=== PATIENT | male | born 2000 | race Caucasian/White ===

== ENCOUNTER 2022-07-07 21:32 | Emergency (ER) | payer OTHER, SELFPAY ==
[2022-07-07 21:33] VITALS: BP 150/93; PULSE 101; RESP 16; TEMP 36.8; O2SAT 100; BMI 17.9
--- NOTE | 2022-07-07 21:38 | ECG_ITS ---
APPROVED REPORT Exam: Resting ECG HR:81 bpm ECG Measurements Heart Rate 81 AXES [place] 152 P 76 QRSd 112 QRS 77 QT 352 T 52 QTc 390 Conclusion SINUS RHYTHM MODERATE INTRAVENTRICULAR CONDUCTION DELAY [110+ ms QRS DURATION] NONSPECIFIC T-WAVE ABNORMALITY BORDERLINE ECG UNCONFIRMED REPORT Electronically signed by : Siddharth Sinclair MD 07/08/2022 08:49:53
--- NOTE | 2022-07-07 22:03 | CT_ITS ---
PROCEDURE INFORMATION: Exam: CT Cervical Spine Without Contrast Exam date and time: 07/07/2022 10:18 PM Age: 22 years old Clinical indication: Injury or trauma; Fall; Blunt trauma; Additional info: Fall, syncope TECHNIQUE: Imaging protocol: Computed tomography of the cervical spine without contrast. Radiation optimization: All CT scans at this facility use at least one of these dose optimization techniques: automated exposure control; mA and/or kV adjustment per patient size (includes targeted exams where dose is matched to clinical indication); or iterative reconstruction. REPORTING DATA: Count of CT and Cardiac NM exams in prior 12 months: This patient has received [address] and 0 known cardiac nuclear medicine studies in the 12 months prior to the current study. COMPARISON: CT HEAD/BRAIN WO CON 07/07/2022 10:16 PM FINDINGS: Bones/joints: No acute fracture. Normal alignment. No significant disc bulge or herniation. No severe spinal canal stenosis. No significant neural foraminal narrowing. Lungs: Lung apices are normal. Soft tissues: Unremarkable. IMPRESSION: No acute findings.
--- NOTE | 2022-07-07 22:03 | XR_ITS ---
PROCEDURE INFORMATION: Exam: XR Pelvis Exam date and time: 07/07/2022 10:35 PM Age: 22 years old Clinical indication: Pelvic pain; Additional info: Fall TECHNIQUE: Imaging protocol: Radiologic exam of the pelvis. Views: 1 or 2 view. COMPARISON: No relevant prior studies available. FINDINGS: Bones/joints: Unremarkable. No acute fracture. Soft tissues: Unremarkable. IMPRESSION: No acute findings.
--- NOTE | 2022-07-07 22:03 | CT_ITS ---
PROCEDURE INFORMATION: Exam: CT Head Without Contrast Exam date and time: 07/07/2022 10:16 PM Age: 22 years old Clinical indication: Injury or trauma; Fall; Blunt trauma (contusions or hematomas); Consciousness not specified; Additional info: Fall, syncope TECHNIQUE: Imaging protocol: Computed tomography of the head without contrast. Radiation optimization: All CT scans at this facility use at least one of these dose optimization techniques: automated exposure control; mA and/or kV adjustment per patient size (includes targeted exams where dose is matched to clinical indication); or iterative reconstruction. REPORTING DATA: Count of CT and Cardiac NM exams in prior 12 months: This patient has received [address] and 0 known cardiac nuclear medicine studies in the 12 months prior to the current study. COMPARISON: No relevant prior studies available. FINDINGS: Brain: Normal. No hemorrhage. Unremarkable white matter. No mass effect. Cerebral ventricles: No ventriculomegaly. Pituitary gland and sella: Negative Paranasal sinuses: Visualized sinuses are unremarkable. No fluid levels. Mastoid air cells: Visualized mastoid air cells are well aerated. Orbital cavities: Negative. Parotid and submandibular glands: Negative Bones/joints: Unremarkable. No acute fracture. Soft tissues: Unremarkable. Vasculature: Negative. IMPRESSION: No acute intracranial abnormality.
--- NOTE | 2022-07-07 22:03 | XR_ITS ---
PROCEDURE INFORMATION: Exam: XR Chest Exam date and time: 07/07/2022 10:35 PM Age: 22 years old Clinical indication: Pain; Other: Generalized; Additional info: Fall TECHNIQUE: Imaging protocol: Radiologic exam of the chest. Views: 4 or more views. COMPARISON: CT CERVICAL SPINE WO CON 07/07/2022 10:18 PM FINDINGS: Lungs: Unremarkable. No consolidation. Pleural spaces: Unremarkable. No pleural effusion. No pneumothorax. Heart/Mediastinum: Unremarkable. No cardiomegaly. Bones/joints: Unremarkable. IMPRESSION: No acute findings.
--- NOTE | 2022-07-07 22:06 | XR_ITS ---
PROCEDURE INFORMATION: Exam: XR Right Wrist Exam date and time: 07/07/2022 10:35 PM Age: 22 years old Clinical indication: Pain; Wrist; Right; Additional info: Hit with hammer TECHNIQUE: Imaging protocol: Radiologic exam of the right wrist. Views: 3 or more views. COMPARISON: No relevant prior studies available. FINDINGS: Bones/joints: Normal. Soft tissues: Normal. IMPRESSION: No acute findings.
--- NOTE | 2022-07-07 22:06 | XR_ITS ---
PROCEDURE INFORMATION: Exam: XR Right Forearm Exam date and time: 07/07/2022 10:35 PM Age: 22 years old Clinical indication: Pain; Lower or forearm; Right; Additional info: Hit with hammer TECHNIQUE: Imaging protocol: Radiologic exam of the right forearm. Views: 2 views. COMPARISON: No relevant prior studies available. FINDINGS: Bones/joints: Normal. Soft tissues: Normal. IMPRESSION: No acute findings.
[2022-07-07 22:09] LABS: Basophils # 0.1 K/mm3 (0-0.2); Basophils % 0.6 % (0.1-2.0); Eosinophils # 0.2 K/mm3 (0.0-0.4); Eosinophils % 2.5 % (0.1-12.0); Hematocrit 48.7 % (42.0-52.0); Hemoglobin 16.3 g/dL (14.1-18.0); Lymphocytes # 1.9 K/mm3 (0.7-4.5); Lymphocytes % 21.6 % (10-50); Mean Corpuscular HGB Conc 33.5 g/dL (31.8-35.4); Mean Corpuscular Hemoglobin 28.4 pg (27.0-31.2); Mean Corpuscular Volume 84.8 fl (80-94); Mean Platelet Volume 8.5 fl (7.4-10.4); Monocytes # 0.4 K/mm3 (0.1-1.0); Monocytes % 4.5 % (1.7-9.3); Neutrophils # 6.2 K/mm3 (1.8-7.8); Neutrophils % 70.8 % (37.0-80.0); Platelet Count 202 K/mm3 (142-424); Red Blood Count 5.74 M/mm3 (4.60-6.20); Red Cell Distribution Width 12.9 % (11.5-17.5); White Blood Count 8.8 K/mm3 (4.8-10.8)
[2022-07-07 22:10] LABS: Chloride 100 mmol/L (98-107)
[2022-07-07 22:11] LABS: Potassium 3.1 mmoL/L (3.5-5.1); Sodium 139 mmol/L (136-145)
[2022-07-07 22:13] LABS: Blood Urea Nitrogen 16 mg/dl (9-20); Creatinine Clearance Estimated 131 mL/min (50-200); Estimated Glomerular Filt Rate 122 ml/min (>60); GFR (African American) 148 ML/MIN (>60)
[2022-07-07 22:14] LABS: Anion Gap 16.1 mEq/L (5-15); Calcium 9.1 mg/dl (8.4-10.2); Carbon Dioxide 26 mmol/L (22.0-30.0); Glucose 129 mg/dl (74-100)
[2022-07-07 22:38] LABS: Troponin I < 0.01 ng/ml (0.00-0.034)
--- NOTE | 2022-07-07 22:39 | HMH.EDSYNC ---
Discharge Plan Disposition Patient Disposition: Home, Self-Care Referrals Follow up/Referrals: Angelina Mitchell MD [Staff Physician] - See instructions Provider,MD Kael [Primary Care Provider] - See instructions Clinical Impressions Clinical Impression: Vasovagal syncope, Closed head injury, Contusion of forearm, right Instructions Patient Instructions: DI for Syncope in Adults (Fainting), DI for Syncope in Children (Fainting) Discharge ED Provider: Libra Moran Syncope HPI General Chief Complaint: Syncope Stated Complaint: Passed out and hit head Time Seen by Provider: 07/07/22 22:10 Mode of Arrival: Family Vehicle Source of Information: Patient Limitations: No Limitations Description of Symptoms (Recalled from ER Triage Doc. by RN): Pt presents to ER after having a syncopal episode while at work tonight @ 2049. States he accidentily hit his R forearm with a hammer twice in a row and afterwards he began to feel dizzy, clammy, and light-headed then passed out for a second . States his coworkers witnessed it and reports he fell back and then forward . His SO is concerned abouit bruising to the R side of his head. There is light bruise there, non-tender. Denies any head or neck pain. Denies any SOA, dizziness, or continued R wrist pain. History of Present Illness HPI narrative: Patient is a 22-year-old male who is here secondary to syncopal episode. Patient apparently fell to the ground and hit his right side of his head. Patient stated that he hit his right wrist with a hammer at work. He did this accidentally to happen twice. Patient after the second time when he hit his wrist he got lightheaded and dizzy and fell down to the ground and passed out. He did hit his right side of his head off the shelf according to the people around him. He did not have a tonic-clonic seizure. He stated that he does not have a headache but he has a some swelling in the right side of the head. He has no confusion slurred speech or focal weakness. He also has some swelling to his right wrist. MD complaint: loss of consciousness, felt faint and collapsed Onset (ago): minute(s) Duration of episode: 2 -: second(s) Prodromal symptoms: lightheaded and vertigo Witnessed: yes - by other (People at work) Context: related to severe pain Injuries sustained associated with event: neck and head Current symptoms: none and back to baseline Treatments prior to arrival: none Related Data Allergies Allergy/AdvReac Type Severity Reaction Status Date / Time PCN (PENICILLIN) Allergy Severe Uncoded 03/10/17 15:11 [facility] Disclaimer: The information contained in this section may have been updated after the patient was seen, as this information can be updated by other users. Social History Smoking Status: Current every day smoker alcohol intake: current current occupational status: employed Travel in the last 8 weeks: None ROS Obtained: Yes All systems reviewed & no additional complaints except as documented Constitutional Constitutional: Reports headache(s) ENT Ears, Nose, Mouth, and Throat: Reports dizziness and Reports headache(s) Cardiovascular Cardiovascular: Reports syncope Musculoskeletal Musculoskeletal: Reports other (Right wrist and forearm injury and swelling) Neurologic Neurologic: Reports dizziness, Reports headache(s) and Reports syncope Physical Exam General General appearance: alert and in distress Head Head exam: other (Right forehead and temporal region soft tissue swelling but no tenderness noted.) Eye Eye exam: Present normal appearance, PERRL and EOMI; Absent scleral icterus or conjunctival redness ENT ENT exam: Present normal exam, normal oropharynx and mucous membranes moist Neck Neck exam: Present normal inspection, full ROM and trachea midline Chest Chest inspection: Present normal inspection and symmetric chest wall rise Respiratory Respiratory ex
[2022-07-07 23:11] VITALS: BP 132/81; PULSE 78; RESP 16; TEMP 36.8; O2SAT 100
== END 2022-07-07 23:13 | disposition home or self-care (01) ==
PROVIDERS: Emergency Provider Emergency Medicine
DX: S06.9X1A Unspecified intracranial injury with loss of consciousness of 30 minutes or less, initial encounter (principal); R55 Syncope and collapse; F17.200 Nicotine dependence, unspecified, uncomplicated; W19.XXXA Unspecified fall, initial encounter
CPT/HCPCS: 70450; 71045; 72125; 72170; 73090; 73110; 80048; 84484; 85025; 93005; 99285

== ENCOUNTER 2023-02-26 12:15 | Emergency (ER) | payer OTHER, SELFPAY ==
[2023-02-26 12:25] VITALS: BP 146/79; PULSE 82; RESP 18; TEMP 36.8; O2SAT 99; BMI 19.2
[2023-02-26 12:41] LABS: UTC Strep Screen (Rapid) Negative (Negative)
--- NOTE | 2023-02-26 12:54 | EXP.UTC ---
Discharge Plan Disposition Patient Disposition: Home, Self-Care Condition: Good Prescriptions Prescriptions: New prednisone 10 mg tablet 10 mg PO BID 4 Days Qty: 8 0RF imsvbzqnnlracut-gewoljmwf-PV [Bromfed DM] 2-30-10 mg/5 mL Syrup 5 ml PO Q6H PRN (Reason: Cough) Qty: 240 0RF Referrals Follow up/Referrals: Marino Landin DO [Primary Care Provider] - See instructions Activity Restrictions/Add. Instructions Additional Instructions/Restrictions: Drink plenty of fluids. Take tylenol or ibuprofen for pain or fever. Take the medications as directed. Follow up with your regular doctor. GO TO THE ER FOR ANY WORSENING SYMPTOMS Clinical Impressions Clinical Impression: Viral pharyngitis Stand Alone Forms Stand Alone Forms: Work/School Release Instructions Patient Instructions: Viral Pharyngitis, DI for Viral Pharyngitis, Prednisone Discharge ED Provider: Zeeshan Govea [facility] HPI General Stated complaint: Sore throat, headache, congestion Mode of Arrival: Ambulatory Source of Information: Patient Limitations: No Limitations Time Seen by Provider: 02/26/23 12:54 Description of Symptoms (Recalled from Triage Doc. by RN): sore throat HEENT Symptoms (Recalled from RN notes): Yes Resp Symptoms (Recalled from RN notes): No Skin Symptoms (Recalled from RN notes): No MS Symptoms (Recalled from RN notes): No Functional Status (Recalled from RN notes): n/a History of Present Illness Provider Complaint: He states that he has had a sore throat since this morning. He denies feeling bad. He denies fever/chills/body aches. He denies any congestion. Related Data Previous Rx's Medication Instructions Recorded lgjzxfxvcjmufoj-hzvcfbtevjkypah-LZ 5 ml PO Q6H PRN Cough #240 mL 02/26/23 2 mg-30 mg-10 mg/5 mL oral syrup (Bromfed DM) prednisone 10 mg tablet 10 mg PO BID 4 days #8 tabs 02/26/23 Allergies Allergy/AdvReac Type Severity Reaction Status Date / Time PCN (PENICILLIN) Allergy Severe Difficulty Uncoded 02/26/23 12:50 Breathing Worker's Comp Is this a Worker's Comp case?: No [facility] Disclaimer: The information contained in this section may have been updated after the patient was seen, as this information can be updated by other users. Family History Other Alcoholism Cancer Social History Smoking Status: Current every day smoker alcohol intake: current current occupational status: employed Travel in the last 8 weeks: None ROS Obtained: Yes All systems reviewed & no additional complaints except as documented Constitutional Constitutional: Denies chills and Denies fever(s) Eyes Eyes: Denies eye discharge ENT Ears, Nose, Mouth, and Throat: Denies dizziness, Denies otalgia and Reports sore throat Cardiovascular Cardiovascular: Denies chest pain Respiratory Respiratory: Denies shortness of breath, Denies chest congestion, Denies cough, Denies stridor and Denies wheezing Gastrointestinal Gastrointestingal: Denies nausea or vomiting Musculoskeletal Musculoskeletal: Reports system reviewed and no additional complaints, except as documented and Denies arthralgias Integumentary/Breasts Skin/Breast: Denies rash Neurologic Neurologic: Denies dizziness and Denies paresthesias Allergic/Immunologic Allergic/Immunologic: Denies wheezing Physical Exam General General appearance: alert and in no apparent distress Head Head exam: atraumatic, normocephalic and normal inspection Eye Eye exam: Present normal appearance, PERRL and EOMI ENT ENT exam: Present mucous membranes moist, TM's normal bilaterally and normal external ear exam Expanded ENT Exam Nose exam: Absent sinus tenderness Nasal speculum exam: Bilateral: normal Mouth exam: Present normal external inspection; Absent drooling Teeth exam: Present normal inspection Throat exam: Present tonsillar erythema; Absent tonsillo
[2023-02-26 13:16] VITALS: BP 146/79; PULSE 82; RESP 18; TEMP 36.8; O2SAT 99
== END 2023-02-26 13:16 | disposition home or self-care (01) ==
PROVIDERS: Emergency Provider Nurse Practitioner Family; PCP Internal Medicine
DX: J02.9 Acute pharyngitis, unspecified (principal); R51.9 Headache, unspecified; R09.81 Nasal congestion; B34.9 Viral infection, unspecified; F17.210 Nicotine dependence, cigarettes, uncomplicated
CPT/HCPCS: 87880; 99204; 99212; G0463

== ENCOUNTER 2024-04-17 11:06 | Emergency (ER) | payer OTHER, SELFPAY ==
[2024-04-17 11:06] VITALS: BP 144/89; PULSE 120; RESP 16; TEMP 37.8; O2SAT 98; BMI 18.7
--- NOTE | 2024-04-17 11:08 | ECG_ITS ---
APPROVED REPORT Exam: Resting ECG HR:123 bpm ECG Measurements Heart Rate 123 AXES HI 136 P 81 QRSd 103 QRS 81 QT 301 T 16 QTc 374 Conclusion SINUS TACHYCARDIA NONSPECIFIC ST & T-WAVE ABNORMALITY ABNORMAL RHYTHM ECG Electronically signed by : DONNA JOSEPH, 04/18/2024 22:08:26
--- NOTE | 2024-04-17 11:12 | PC.NURSE ---
DR PRETTY NOTIFIED OF POSSIBLE SEPSIS RISK, WILL EVALUATE PT AND ENTER ORDERS IF NECESSARY
--- NOTE | 2024-04-17 11:16 | PC.NURSE ---
DR PRETTY AT BEDSIDE
[2024-04-17] MEDS: ACETAMINOPHEN 500MG TAB 1000 MG PO (11:17)
[2024-04-17] MEDS: IBUPROFEN 600 MG TABLET PO (11:17)
[2024-04-17 11:18] LABS: Coronavirus 19, PCR Not Detected (NotDetected); Influenza B, PCR Not Detected (NotDetected)
[2024-04-17 11:30] VITALS: BP 128/79; PULSE 112; O2SAT 97
--- NOTE | 2024-04-17 11:45 | PC.NURSE ---
PT PROVIDED URINAL
[2024-04-17 11:47] LABS: Influenza A, PCR Detected (NotDetected)
--- NOTE | 2024-04-17 11:53 | PC.NURSE ---
DR PRETTY AT BEDSIDE TO US PT AND UPDATE PT AND S.O ON POC
--- NOTE | 2024-04-17 11:57 | ED_ITS ---
Discharge Plan Disposition Patient Disposition: Home, Self-Care Chief Complaint: Upper Respiratory Infection Prescriptions Prescriptions: No Action prednisone 10 mg tablet 10 mg PO BID 4 Days Qty: 8 0RF fiihokhhzhwbito-qlhkoumkh-JR [Bromfed DM] 2-30-10 mg/5 mL Syrup 5 ml PO Q6H PRN (Reason: Cough) Qty: 240 0RF Referrals Follow up/Referrals: Marino Landin DO [Primary Care Provider] - See instructions Activity Restrictions/Add. Instructions Additional Instructions/Restrictions: Call your family doctor to establish care for this visit to the emergency department and schedule follow-up within 48 hours to ensure improvement. If you have any worsening of your condition or any other concerning signs or symptoms, return to the emergency department or your primary care doctor for further evaluation. Take Tylenol 1000 mg every 6 hours (4 times daily) and ibuprofen 400 mg every 6 hours (4 times daily) as needed with food and water to prevent GI upset and kidney damage. Clinical Impressions Clinical Impression: Influenza A Print Language Print Language: Comoran Discharge ED Provider: Anthony Kaminski General Adult HPI General Chief complaint: Upper Respiratory Infection Stated complaint: Chest pain Time Seen by Provider: 04/17/24 11:07 Mode of Arrival: Ambulatory Source of Information: Patient Limitations: No Limitations Description of Symptoms (Recalled from ER Triage Doc. by RN): PT REPORTS WAKING WITH HEADACHE, CHEST CONGESTION, COUGH AND FEVER History of Present Illness HPI narrative: Please note that above description of symptoms, in this electronic medical record under categorization of recalled from ER triage doctor by RN are reflective of an initial nursing assessment, however, is not reflective of my full history and physical exam that was personally taken and clarified. Consequentially, this preceding description of symptoms, which may include the patient's categorized chief complaint in the EMR, do not reflect my personal clinical impression, and the ultimate description of history of present illness and patient stated complaints should be deferred to this section of the note. Unless stated otherwise or congruent with this section of the note, additional signs, symptoms, or incongruence should be interpreted as inaccurate with my clinical impression. Related Data Previous Rx's ?Medication ?Instructions ?Recorded fmxhpfgdezrveas-ovarclckzvwvezn-MS 5 ml PO Q6H PRN Cough #240 mL 02/26/23 2 mg-30 mg-10 mg/5 mL oral syrup (Bromfed DM) prednisone 10 mg tablet 10 mg PO BID 4 days #8 tabs 02/26/23 Allergies Allergy/AdvReac Type Severity Reaction Status Date / Time Penicillins Allergy Unknown Verified 04/09/23 14:19 allergy reaction [facility] Disclaimer: The information contained in this section may have been updated after the patient was seen, as this information can be updated by other users. Family History Other Alcoholism Cancer Social History Smoking Status: Current every day smoker alcohol intake: current current occupational status: employed Travel in the last 8 weeks: None Have you lived/traveled outside [place] in past 30 days?: No Contact w/someone who lives/traveled outside US past 30 days?: No Exposure to someone with infectious disease in past 14 days?: No Do you have a fever (greater than 100.4 F or 38 C)?: No Have you tested positive for COVID-19: No Exposed to someone with COVID-19 in past 14 days?: No Do you have a sore throat?: No Do you have a cough?: No Do you have any weakness?: No Do you have any diarrhea?: No Are you experiencing any unusual bleeding?: No Do you have any muscle aches/pain?: No Do you have any abdominal pain?: No Are you experiencing loss of taste or smell?: No Other Medical History Have you received the Pneumonia Vaccine: Yes ROS Obtained: Yes All systems reviewed & no additional complaints except as documented Physical Exam General General appearance: alert and in no apparent distress Head Head exam: atraumatic and normocephalic Eye Eye exam: Present normal appearance, PERRL and EOMI Neck Neck exam: Present normal inspection, full ROM and trachea midline Respiratory Respiratory exam: Present normal lung sounds bilaterally; Absent respiratory distress, wheezes, stridor, accessory muscle use or prolonged expiratory phase Cardiovascular Cardiovascular exam: Present normal rhythm, tachycardia and other (Pulses equal symmetric in upper and lower extremities) Abdominal Exam Abdominal exam: Present soft; Absent distention, tenderness or pulsatile mass Extremities Exam Extremities exam: Absent edema Neurological Exam Neurological exam: Present alert, oriented X3 and CN II-XII intact; Absent motor sensory deficit Skin Skin exam: Present warm and dry; Absent diaphoresis or erythema Medical Decision Making Medical Records Medical records reviewed: Yes I reviewed the patient's medical records. Screening: Per USPSTF and CDC recommendations, given the prevalence of disease in our region, it is our hospital?s policy to screen for HIV and viral Hepatitis for all patients aged 18 and over and those with ongoing risk factors. Lanre Inquiry Pt receiving controlled substance: No Lanre was queried for this patient: No Vital Signs: 04/17/24 11:06 04/17/24 11:30 Temperature 100.0 F H Temperature Source Oral Pulse Rate 112 H Pulse Rate [Apical] 120 H Respiratory Rate 16 Blood Pressure 128/79 Blood Pressure [Right Arm] 144/89 H Blood Pressure Mean [Right Arm] 107 Blood Pressure Source [Right Arm] Automatic Cuff Blood Pressure Position [Right Arm] Sitting 02 Sat by Pulse Oximetry 98 97 Oxygen Delivery Method Room Air Room Air Lab Data Lab Results 04/17/24 11:10: SARS-CoV-2 (PCR) Not detected, Influenza A Untype (PCR) Detected A, Influenza Type B (PCR) Not detected Orders (Tests/Meds): ED MEDICATIONS Discontinued Medications Generic Name Dose Route Start Last Admin Trade Name Freq PRN Reason Stop Dose Admin Acetaminophen 1,000 mg 04/17/24 11:14 04/17/24 11:17 Acetaminophen 500mg Tab PO 04/17/24 11:15 1,000 mg ONCE ONE Administration Ibuprofen 600 mg 04/17/24 11:14 04/17/24 11:17 Ibuprofen 600 Mg Tablet PO 04/17/24 11:15 600 mg ONCE ONE Administration ORDERS Category Date Time Status POCUS Point of Care (ER Only) Stat Exams 04/17/24 11:34 Ordered Rapid PCR Covid and Flu A/B Stat Lab 04/17/24 11:10 Completed Medical Decision Narrative: 24-year-old male presenting with fever, general malaise, chest tightness. States that he woke up today, 04/11 sick started feeling poorly. Came in for further evaluation. No nausea, vomiting, abdominal pain, has had intermittent cough that is productive of clear sputum. History obtained with patient. On arrival, he appears very clinically well-appearing speaking in full sentences, actually has no acute complaints. Not coughing. Normotensive, tachycardic and febrile saturating appropriately on room air. Lungs are clear, cardiac exam with tachycardia, otherwise normal. Differential includes viral syndrome, pericarditis, myocarditis, PE, pneumothorax, among others. Patient was given Tylenol and Motrin. EKG obtained and independently interpreted. Sinus tachycardia 123 bpm with ME 136, QRS 103, QTc 374. Patient has good R wave progression. Nonspecific T wave changes. Normal axis. Influenza swab was obtained and this was positive for influenza A. Bedside ctkyl-ks-xzda ultrasound was performed to rule out pericardial effusion, myocarditis, etc. This was normal. See procedure note. Because patient at baseline without signs or symptoms of clinical decompensation, deemed appropriate for discharge. Results were relayed to patient who voiced understanding and were agreeable to outpatient management and follow up. I discussed my clinical impression with patient and answered all questions. At this time, the evidence for any other entities in the differential is insufficient to warrant any further testing or ED observation. This was explained as well. Advisory was given that persistent or worsening symptoms require further evaluation. I confirmed the understanding of this discussion. Pressure Tester disclaimer Much of this encounter note is an electronic net application support specialist spoken language to printed text. Electronic net application support specialist of the spoken language may permit errors. Although I have reviewed the note, some errors may still exist. Procedures Limited Ultrasound Indication:: Limited cardiac ultrasound Indication: Chest pressure, tachycardia Identified cardiac views: -Cardiac parasternal long axis -Cardiac parasternal short axis Findings: -Cardiac activity present -Gross wall motion normal -Pericardial effusion absent -Right heart strain absent Impression: -Normal cardiac ultrasound. Hyperdynamic, but no acute abnormal findings Images were saved to permanent archive The study was technically adequate CPT: 62595 This study was performed by me, and I personally interpreted all images/videos. Based on my clinical judgement, these images were adequate and did not necessitate further imaging Critical Care Critical Care Time Critical Care Time: No
[2024-04-17 12:06] VITALS: BP 126/60; PULSE 107; RESP 16; TEMP 37.2; O2SAT 95
== END 2024-04-17 12:07 | disposition home or self-care (01) ==
PROVIDERS: Emergency Provider Emergency Medicine; PCP Internal Medicine
DX: J10.1 Influenza due to other identified influenza virus with other respiratory manifestations (principal); R07.9 Chest pain, unspecified; R51.9 Headache, unspecified; R09.81 Nasal congestion; R05.9 Cough, unspecified; R50.9 Fever, unspecified; Z72.0 Tobacco use
CPT/HCPCS: 87636; 93005; 99284

== ENCOUNTER 2024-06-27 14:11 | Emergency (ER) | payer OTHER, SELFPAY ==
[2024-06-27 14:20] VITALS: BP 155/101; PULSE 95; RESP 19; TEMP 37.2; O2SAT 98; BMI 18.6
--- NOTE | 2024-06-27 14:31 | XR_ITS ---
FINAL REPORT CLINICAL HISTORY: injury, pain to lateral ankle COMPARISON: None FINDINGS: Two views of the right tibia/fibula were obtained. There is no acute fracture or dislocation. There is an ossific protuberance arising from the posterior and medial aspect of the proximal fibula measuring 2.6 cm in length consistent with exostosis. The joint spaces are intact. There is no soft tissue abnormality. IMPRESSION: No acute bony abnormality. Reviewed, Interpreted and Dictated by Anderson Marcelo MD Transcribed by Nathaly Gutierrez Authenticated and [facility]
--- NOTE | 2024-06-27 14:31 | XR_ITS ---
FINAL REPORT CLINICAL HISTORY: injury, pain to lateral ankle COMPARISON: None FINDINGS: RIGHT ANKLE 3 views of the right ankle were obtained. There is no acute fracture or dislocation. The mortise is intact. Visualized joint spaces are normally aligned. There is mild soft tissue swelling about the ankle, particularly evident over the lateral malleolus. IMPRESSION: Soft tissue swelling without acute bony abnormality. Reviewed, Interpreted and Dictated by Anderson Marcelo MD Transcribed by Nathaly Gutierrez Authenticated and . [facility]
--- NOTE | 2024-06-27 14:31 | XR_ITS ---
FINAL REPORT CLINICAL HISTORY: injury, pain to lateral ankle COMPARISON: None FINDINGS: RIGHT FOOT 3 views of the right foot were obtained. There is no acute fracture or dislocation. Visualized joint spaces are normally aligned. Soft tissues are unremarkable. IMPRESSION: No acute bony abnormality. Reviewed, Interpreted and Dictated by Anderson Marcelo MD Transcribed by Nathaly Gutierrez Authenticated and [facility]
--- NOTE | 2024-06-27 16:03 | ED_ITS ---
Discharge Plan Disposition Patient Disposition: Home, Self-Care Condition: Good Prescriptions Prescriptions: No Action prednisone 10 mg tablet 10 mg PO BID 4 Days Qty: 8 0RF [id number]-[id number] [Bromfed DM] 2-30-10 mg/5 mL Syrup 5 ml PO Q6H PRN (Reason: Cough) Qty: 240 0RF Referrals Follow up/Referrals: Sanjeev Ambrosio, [Staff Physician] - See instructions Yaz Mosher DPM [Staff Physician] - See instructions Siddharth Biswas MD [Primary Care Provider] - See instructions Activity Restrictions/Add. Instructions Additional Instructions/Restrictions: You were evaluated in the emergency department today. X-rays do not show any broken bones. Please use the walking boot for support. Rest, ice, and elevate your leg to help reduce pain and swelling. Follow-up closely with primary care. I am also providing you with information for Dr. Mosher with podiatry as well as Dr. Ambrosio with orthopedics should you continue to have pain and wish to follow-up with one of them. Take Tylenol and ibuprofen every 4-6 hours as needed for pain. Return to the emergency department for new or worsening symptoms. Clinical Impressions Clinical Impression: Right ankle sprain Stand Alone Forms Stand Alone Forms: Work/School Release Instructions Patient Instructions: DI for Ankle Sprain Print Language Print Language: [place] Island[place] Discharge ED Provider: Nga Lovell General Adult HPI General Chief complaint: PAIN Stated complaint: AO-06/26-fall, pain and swelling R ankle Time Seen by Provider: 06/27/24 14:25 Mode of Arrival: Ambulatory Source of Information: Patient Description of Symptoms (Recalled from ER Triage Doc. by RN): pt presents to ED with c/o right ankle pain. pt reports that he went to step off his porch last night and slipped in the mud. pt reports pain in ankle History of Present Illness HPI narrative: This patient is a 24-year-old male who denies significant past medical history presenting to the emergency department for evaluation of concern for right ankle injury. Patient reports that he went to step off the porch last night and slipped in mud, injuring his right ankle. He is still been able to walk on it but it is painful. No numbness, tingling, or other concerns. No other injuries noted. Related Data Previous Rx's ?Medication ?Instructions ?Recorded jixasrvcufesacj-mckkrpaqovhldxg-JN 5 ml PO Q6H PRN Cough #240 mL 02/26/23 2 mg-30 mg-10 mg/5 mL oral syrup (Bromfed DM) prednisone 10 mg tablet 10 mg PO BID 4 days #8 tabs 02/26/23 Allergies Allergy/AdvReac Type Severity Reaction Status Date / Time Penicillins Allergy Unknown Verified 04/09/23 14:19 [facility] Disclaimer: The information contained in this section may have been updated after the patient was seen, as this information can be updated by other users. Family History Other Alcoholism Cancer Social History Smoking Status: Never smoker alcohol intake: current current occupational status: employed Travel in the last 8 weeks: None Have you lived/traveled outside [place] in past 30 days?: No Contact w/someone who lives/traveled outside [place] past 30 days?: No Exposure to someone with infectious disease in past 14 days?: No Do you have a fever (greater than 100.4 F or 38 C)?: No Have you tested positive for COVID-19: No Exposed to someone with COVID-19 in past 14 days?: No Do you have a sore throat?: No Do you have a cough?: No Do you have any weakness?: No Do you have any diarrhea?: No Are you experiencing any unusual bleeding?: No Do you have any muscle aches/pain?: No Do you have any abdominal pain?: No Are you experiencing loss of taste or smell?: No Other Medical History Have you received the Pneumonia Vaccine: Yes ROS Obtained: Yes All systems reviewed & no additional complaints except as documented Physical Exam General General appearance: alert and in no apparent distress Head Head exam: atraumatic and normocephalic Eye Eye exam: Present normal appearance, PERRL and EOMI ENT ENT exam: Present normal exam, normal oropharynx, mucous membranes moist and normal external ear exam Neck Neck exam: Present normal inspection, full ROM and trachea midline; Absent tenderness Chest Chest inspection: Present normal inspection and symmetric chest wall rise; Absent tenderness Respiratory Respiratory exam: Present normal lung sounds bilaterally; Absent respiratory distress, wheezes, stridor or accessory muscle use Cardiovascular Cardiovascular exam: Present regular rate and normal rhythm Abdominal Exam Abdominal exam: Present soft; Absent distention, tenderness or guarding Extremities Exam Extremities exam: Present full ROM, tenderness, normal capillary refill, joint swelling and other (Swelling and tenderness to palpation of the right ankle joint, especially by the lateral aspect of the ankle. All compartments soft. Neurovascularly intact distally. No open wounds.) Back Exam Back exam: Present normal inspection and full ROM; Absent tenderness Neurological Exam Neurological exam: Present alert, oriented X3, CN II-XII intact and normal gait; Absent motor sensory deficit Psychiatric Psychiatric exam: Present normal affect and normal mood Skin Skin exam: Present warm and dry Medical Decision Making Medical Records Medical records reviewed: Yes I reviewed the patient's medical records. Screening: Per USPSTF and CDC recommendations, given the prevalence of disease in our region, it is our hospital?s policy to screen for HIV and viral Hepatitis for all patients aged 18 and over and those with ongoing risk factors. [place] Inquiry Pt receiving controlled substance: No Vital Signs: 06/27/24 14:20 Temperature 98.9 F Temperature Source Oral Pulse Rate [Left Radial] 95 H Respiratory Rate 19 Blood Pressure [Right Arm] 155/101 H Blood Pressure Mean [Right Arm] 119 02 Sat by Pulse Oximetry 98 Lab Data Lab results reviewed: Yes I reviewed the patient's lab results. Orders (Tests/Meds): ORDERS Category Date Time Status Ankle XR -Right minimum 3 Views [XR ankle RT min 3V] Exams 06/27/24 14:31 Completed Stat Foot XR right minimum 3 views [XR foot RT min 3V] Stat Exams 06/27/24 14:31 Taken Tibia/fibula XR right 2 views [XR tibia fibula RT 2V] Exams 06/27/24 14:31 Completed Stat HIV Combo Stat Lab 06/27/24 14:24 Ordered Hepatitis C Ab Qual. W/ RFX Stat Lab 06/27/24 14:24 Ordered Medical Decision Narrative: In summary, this patient is a 24-year-old presenting to the Emergency Department for evaluation of right ankle injury. Differential diagnoses considered include but are not limited to fracture, contusion, strain/pain, neurovascular injury. Ruling out the most morbid conditions drove assessment. On exam, the patient has swelling tenderness to palpation of the lateral aspect of the right ankle but is neurovascularly intact distally. Workup included x- rays of the right foot, ankle, tib-fib. I independently interpreted x-ray prior to the radiologist read and noted some calcifications adjacent to the proximal fibula but I do not see any obvious fracture. Please see their read for final interpretation. Ultimately at this time, I feel patient likely has a significant ankle sprain and is appropriate for discharge home with walking boot and close follow-up with orthopedics/primary care. He was given instructions for supportive management and strict return precautions. Critical Care Critical Care Time Critical Care Time: No
[2024-06-27 16:04] VITALS: BP 138/85; PULSE 78; RESP 16; TEMP 36.7; O2SAT 97
== END 2024-06-27 16:04 | disposition home or self-care (01) ==
PROVIDERS: Emergency Provider Emergency Medicine; PCP Family Medicine
DX: S93.401A Sprain of unspecified ligament of right ankle, initial encounter (principal); M25.571 Pain in right ankle and joints of right foot; W01.0XXA Fall on same level from slipping, tripping and stumbling without subsequent striking against object, initial encounter; Y93.89 Activity, other specified; Y92.9 Unspecified place or not applicable
CPT/HCPCS: 73590; 73610; 73630; 99283